=== PATIENT | male | born 1950 | race Caucasian/White ===

== ENCOUNTER → 2016-12-19 | Outpatient (CLI) | payer OTHER | END | disposition home or self-care (01) | LOC: C.PATHSPEC 13:40 | PROVIDERS: ATTEND Dentist Endodontics | DX: K13.79 Other lesions of oral mucosa (principal) ==

== ENCOUNTER 2018-11-24 21:30 | Inpatient (IN) ==
--- NOTE | 2018-11-24 21:49 | Emergency Department Note ---
History of Present Illness General Chief complaint: Chest Pain Stated complaint: CHEST DISCOMFORT, SOB History of Present Illness Maximum Pain Intensity: 2 This 67-year-old presents to the ER complaining of chest pain Location: Mid chest Quality: Pressure Severity: Moderate Duration: Since 1 PM Timing: Started this afternoon Context: Symptoms got worse and patient came in Modifying factors: better with nothing; worse with nothing Patient also complains of some shortness of breath and back discomfort. No prior heart disease. He does have high blood pressure and cholesterol. Patient denies exertional chest pain, abdominal pain, leg pain or swelling, recent travel. He does not smoke. Last cardiac cath was in 2010. Negative per patient. Patient does not check his blood sugars. Home Medications Home Medications Medication Instructions Recorded Confirmed Type atenolol-chlorthalidone 1 tab PO QAM 03/25/18 11/24/18 History losartan 100 mg PO QAM 03/25/18 11/24/18 History metformin 1,000 mg PO QAM 03/25/18 11/24/18 History metformin 500 mg PO HS 03/25/18 11/24/18 History zolpidem [Ambien] 12.5 mg PO HS 03/25/18 11/24/18 History aspirin 81 mg PO QAM 11/24/18 11/24/18 History lactobacillus combination no.4 0 mmu cells PO QAM 11/24/18 11/24/18 History [Probiotic] naproxen sodium [Aleve] 220 mg PO BID PRN 11/24/18 11/24/18 History Allergies Allergy/AdvReac Type Severity Reaction Status Date / Time morphine Allergy Unknown Unknown Verified 11/24/18 22:10 rosuvastatin [From Crestor] AdvReac Intermediate Muscle Verified 11/24/18 22:10 pain and upset stomach Past Med/Surg History Medical History Insomnia Type 2 diabetes mellitus Mood disorder HTN (hypertension) COPD (chronic obstructive pulmonary disease) Family History Other No significant family history Social History Preferred Language: Singaporean Feels Safe at Home: Yes Smoking Status: Never smoker Review of Systems All systems reviewed & are unremarkable except as noted in HPI & below Physical Exam Vital Signs Vital Signs - 24 hr 11/24/18 21:34 11/24/18 21:37 11/24/18 21:40 Temperature 37.2 C Temperature Source Oral Sepsis Recent Fever Within 48 Hours No Sepsis New/Unexplained Change in Mental Status No Sepsis Action Taken by Nursing No Action Required Pulse Rate 60 63 65 Pulse Rate from SpO2 Sensor 61 63 65 Respiratory Rate 17 13 13 Respiratory Effort / Characteristics Non-Labored Spontaneous Respiratory Depth Normal Respiratory Pattern Regular Blood Pressure 191/102 H 182/88 H 182/88 H Blood Pressure Mean 131 119 119 Pulse Oximetry 99 98 99 Oxygen Delivery Method Room Air 11/24/18 21:50 11/24/18 22:00 11/24/18 22:10 Temperature Temperature Source Sepsis Recent Fever Within 48 Hours Sepsis New/Unexplained Change in Mental Status Sepsis Action Taken by Nursing Pulse Rate 57 L 60 55 L Pulse Rate from SpO2 Sensor 57 L 59 L 55 L Respiratory Rate 19 20 12 Respiratory Effort / Characteristics Respiratory Depth Respiratory Pattern Blood Pressure Blood Pressure Mean Pulse Oximetry 97 97 97 Oxygen Delivery Method 11/24/18 22:20 11/24/18 22:30 11/24/18 22:40 Temperature Temperature Source Sepsis Recent Fever Within 48 Hours Sepsis New/Unexplained Change in Mental Status Sepsis Action Taken by Nursing Pulse Rate 56 L 56 L 56 L Pulse Rate from SpO2 Sensor 55 L 54 L 56 L Respiratory Rate 22 14 13 Respiratory Effort / Characteristics Respiratory Depth Respiratory Pattern Blood Pressure Blood Pressure Mean Pulse Oximetry 94 96 95 Oxygen Delivery Method VITALS: Vitals are noted on the nurse's note and reviewed by myself. Vital signs hypertensive. GENERAL: Pleasant male, in no acute distress, nondiaphoretic, well-developed w ell-nourished. SKIN: The skin was without rashes, erythema, edema, or bruising. There is no tenting of the skin. Capillary reflex less than 2 seconds. HEAD: Normocephalic atraumatic. EARS: External auditory canals clear, fluid in both ear canals. EYES: Pupils equal round and reactive to light and accommodation. Conjunctivae without injection, sclerae without icterus. Extraocular movements intact. NOSE: Patent, turbinates without inflammation or discharge. MOUTH: Mucous membranes moist. Pharynx without erythema or exudate. Uvula midline. Airway patent. Tongue does not deviate. NECK: Supple without nuchal rigidity. No lymphadenopathy. No thyromegaly. Cervical spine is nontender. No JVD. HEART: Regular rate and rhythm LUNGS: Clear to auscultation bilaterally without wheezes, rales or rhonchi. No retractions or accessory muscle use. ABDOMEN: Positive bowel sounds x 4. Normal tympanic percussion. Soft, nontender, without masses or organomegaly. Meléndez sign negative. No guarding or rebound tenderness. No CVA tenderness MUSCULOSKELETAL: No muscle atrophy, erythema, or edema noted. NEURO: Patient was alert and oriented to person place and time. Normal sensati on to light and sharp touch. No focal neurological deficits. Course Administered Medications Magnesium Sulfate/Dextrose (Magnesium Sulfate / D5w) 1 gm in 100 mls @ 100 mls/hr IV ONE ONE Stop: 11/24/18 23:30 Last Admin: 11/24/18 22:57 Dose: 100 mls/hr Documented by: [id number] Discontinued Medications Lorazepam (Ativan) 1 mg in 2 mls @ 2 mls/min IV NOW STA Stop: 11/24/18 22:33 Last Admin: 11/24/18 22:57 Dose: 2 mls/min Documented by: [id number] Losartan Potassium (Cozaar) 50 mg PO NOW STA Stop: 11/24/18 22:33 Last Admin: 11/24/18 22:56 Dose: 50 mg Documented by: [id number] Potassium Chloride (Klor-Con M10) 20 meq PO NOW STA Stop: 11/24/18 22:32 Last Admin: 11/24/18 22:56 Dose: 20 meq Documented by: [id number] Potassium Chloride (Klor-Con M20) 40 meq PO NOW STA Stop: 11/24/18 22:33 Last Admin: 11/24/18 22:56 Dose: 40 meq Documented by: [id number] Medical Decision Making Medical Records Attestation: I reviewed the patient's medical records. Home Medications Current Medication List: was personally reviewed by me Laboratory Data Attestation: I reviewed the patient's lab results. Result diagrams: 11/24/18 21:25 11/24/18 21:25 Lab Results 11/24/18 11/24/18 11/24/18 Range/Units 21:25 21:25 21:25 WBC 10.78 (4.8-10.8) K/uL RBC 5.06 (4.7-6.1) M/uL Hgb 15.1 (14.0-18.0) g/dL Hct 43.1 (42-52) % MCV 85.2 (80-100) fL MCH 29.8 (25-34) pg MCHC 35.0 (32-36) g/dL RDW Std Deviation 41.9 (36.4-46.3) fL RDW Coeff of Avinash 13.5 (11.5-14.5) % Plt Count 184 (130-400) K/uL MPV 10.3 (7.4-10.4) fL Immature Gran % (Auto) 0.4 % Neut % (Auto) 60.7 % Lymph % (Auto) 30.1 % [place] % (Auto) 7.6 % Eos % (Auto) 0.8 % Baso % (Auto) 0.4 % Immature Gran # (Auto) 0.04 H (0.00-0.02) K/uL Neut # (Auto) 6.55 H (1.4-6.5) K/uL Lymph # (Auto) 3.24 (1.2-3.4) K/uL [place] # (Auto) 0.82 H (0.11-0.59) K/uL Eos # (Auto) 0.09 (0-0.5) K/uL Baso # (Auto) 0.04 (0-0.2) K/uL APTT 27.9 (21.0-31.0) Seconds PTT Ratio 1.0 POC D-Dimer (0-450) ng/mlFEU Sodium 138 (136-145) mmol/L Potassium 3.2 L (3.5-5.1) mmol/L Chloride 101 (98-107) mmol/L Carbon Dioxide 29 (21-32) mmol/L Anion Gap 8.0 (3-11) BUN 15 (7-18) mg/dl Creatinine 0.92 (0.6-1.4) mg/dl Est Cr Clr Drug Dosing 68.4 ml/min Est GFR ( Amer) 98.0 Est GFR (Non-Af Amer) 84.6 BUN/Creatinine Ratio 15.9 (10-20) Glucose 81 (70-99) mg/dl Calcium 10.3 H (8.5-10.1) mg/dl Magnesium 1.6 L (1.8-2.4) mg/dl Total Bilirubin 0.9 (0.2-1) mg/dl AST 21 (15-37) U/L ALT 25 (12-78) U/L Alkaline Phosphatase 99 (45-117) U/L Total Creatine Kinase 155 (39-308) U/L POC Troponin I (0-0.045) ng/ml Troponin I < 0.015 (0-0.045) ng/ml Total Protein 7.1 (6.4-8.2) gm/dl Albumin 3.8 (3.4-5.0) gm/dl Globulin 3.3 (2.5-4.0) gm/dl Albumin/Globulin Ratio 1.1 (0.9-2) Lipase 153 (73-393) U/L 11/24/18 Range/Units 21:54 WBC (4.8-10.8) K/uL RBC (4.7-6.1) M/uL Hgb (14.0-18.0) g/dL Hct (42-52) % MCV (80-100) fL MCH (25-34) pg MCHC (32-36) g/dL RDW Std Deviation (36.4-46.3) fL RDW Coeff of Avinash (11.5-14.5) % Plt Count (130-400) K/uL MPV (7.4-10.4) fL Immature Gran % (Auto) % Neut % (Auto) % Lymph % (Auto) % [place] % (Auto) % Eos % (Auto) % Baso % (Auto) % Immature Gran # (Auto) (0.00-0.02) K/uL Neut # (Auto) (1.4-6.5) K/uL Lymph # (Auto) (1.2-3.4) K/uL [place] # (Auto) (0.11-0.59) K/uL Eos # (Auto) (0-0.5) K/uL Baso # (Auto) (0-0.2) K/uL APTT (21.0-31.0) Seconds PTT Ratio POC D-Dimer 178 (0-450) ng/mlFEU Sodium (136-145) mmol/L Potassium (3.5-5.1) mmol/L Chloride (98-107) mmol/L Carbon Dioxide (21-32) mmol/L Anion Gap (3-11) BUN (7-18) mg/dl Creatinine (0.6-1.4) mg/dl Est Cr Clr Drug Dosing ml/min Est GFR ( Amer) Est GFR (Non-Af Amer) BUN/Creatinine Ratio (10-20) Glucose (70-99) mg/dl Calcium (8.5-10.1) mg/dl Magnesium (1.8-2.4) mg/dl Total Bilirubin (0.2-1) mg/dl AST (15-37) U/L ALT (12-78) U/L Alkaline Phosphatase (45-117) U/L Total Creatine Kinase (39-308) U/L POC Troponin I < 0.03 (0-0.045) ng/ml Troponin I (0-0.045) ng/ml Total Protein (6.4-8.2) gm/dl Albumin (3.4-5.0) gm/dl Globulin (2.5-4.0) gm/dl Albumin/Globulin Ratio (0.9-2) Lipase (73-393) U/L Imaging Data Attestation: I personally reviewed and interpreted this imaging study as follows: Blood Pressure Blood Pressure Findings: Elevated blood pressure Blood Pressure Disposition: Referred to patients primary care provider MDM Narrative Prior records/ancillary studies reviewed. Triage Nursing notes reviewed. Additional history obtained from family and EMS. The patient's history was concerning for chest pain. Differential diagnosis: Etiologies such as cardiac ischemia, aortic dissection, pulmonary embolism, pneumonia, pneumothorax, musculoskeletal, infections, pericarditis, myocarditis, esophageal rupture, gastrointestinal, as well as others were entertained. Physical examination: As above. ER treatment provided: EMS gave aspirin. On reassessment the patient felt better. Diagnostic interpretation by me: The electrocardiogram was negative for pathologic change. Normal sinus, normal intervals, no acute ST-T wave changes, rate of 60. Impression normal sinus rhythm interpreted by myself. Repeat EKG is unchanged. I think arrhythmia is unlikely. EKG shows normal sinus rhythm with no interval abnormalities such as QT prolongation or WPW. There are no findings to suggest Brugada syndrome. Cardiac monitoring in the emergency department reveals no tachycardic or bradycardic dysrhythmia. Hypertrophic cardiomyopathy was considered but there are no clear historical elements pointing toward this. EKG is not suggestive. The QRS voltage is not extremely large and there are no suggestive Q waves. The labs revealed negative troponin. Negative d-dimer. Hypomagnesia and hypokalemia this is replaced Imaging studies: Chest x-ray with no acute consolidation pneumothorax or free air per my interpretation. HEART SCORE: Hx: high/mod/low suspicion: 1 ECG: ST depression/nonspecific changes/normal: 0 Age: Greater than 65/45-64/less than 45: 2 Risk factors: (Hypertension, hyperlipidemia, diabetes, coronary disease, tobacco use, cocaine use): 2 Troponin: Greater than 2 times normal limits/1-2 times normal limits/normal: 0 Total: 5 Consultation: A consultation was placed with the hospitalist, Dr Adams. The case was discussed and diagnostics were reviewed. The patient was evaluated in the ER for further treatment. Exam and history seem consistent with chest pain with risk factors for heart di sease. First troponin was negative. D-dimer was negative. Repeat EKG is unchanged. Patient is agreeable to treatment plan of admission. No recent cardiac testing. He does have high blood pressure and cholesterol for risk factors. By the evaluation outlined above emergent etiologies such as aortic dissection, pulmonary embolism, pneumonia, pneumothorax, infections, pericarditis, myocarditis, gastrointestinal, as well as others were deemed relatively unlikely. The pt informed about the findings as listed above. All questions were answered and pleased with the treatment. Case reviewed with my attending The chart was completed utilizing [employer] Speech voice recognition software. Grammatical errors, random word insertions, pronoun errors, and incomplete sentences are an occassional consequence of this system due to software limitations, ambient noise, and hardware issues. Any formal questions or concerns about the content, text, or information contained within the body of this dictation should be directly addressed to the physician physician assistant primary care for clarification. Impression & Plan Atypical chest pain, Hypomagnesemia, Hypokalemia Discharge Plan Visit Data Chief Complaint: Chest Pain Stated Complaint: CHEST DISCOMFORT, SOB ED Provider: Jey Álvarez ED Midlevel Provider: Chacha Anders Discharge Problem: Atypical chest pain, Hypomagnesemia, Hypokalemia Patient Disposition: Being Evaluated by Hospitalist Condition: Fair Forms Stand Alone Forms: Call Back Authorization, My [facility] AppSheet Prescriptions Prescriptions: No Action naproxen sodium [Aleve] 220 mg Tablet 220 mg PO BID PRN (Reason: Pain) RF: 0 aspirin 81 mg Tablet,Chewable 81 mg PO QAM RF: 0 Probiotic 3 billion cell Capsule PO QAM RF: 0 losartan 50 mg Tablet 100 mg PO QAM RF: 0 metformin 500 mg Tablet 1,000 mg PO QAM RF: 0 metformin 500 mg Tablet 500 mg PO HS RF: 0 atenolol-chlorthalidone 50-25 mg Tablet 1 tab PO QAM RF: 0 zolpidem [Ambien] 5 mg Tablet 12.5 mg PO HS RF: 0 Referrals Referrals: Andrew Griffith MD [Primary Care Provider] -
[2018-11-24 21:54] LABS: Basophils # (auto) 0.04 K/uL (0-0.2); Basophils % (auto) 0.4 %; Eosinophils # (auto) 0.09 K/uL (0-0.5); Eosinophils % (auto) 0.8 %; Hematocrit (blood only) 43.1 % (42-52); Hemoglobin 15.1 g/dL (14.0-18.0); Immature Granulocytes # (auto) 0.04 K/uL (0.00-0.02); Immature Granulocytes % (auto) 0.4 %; Lymphocytes # (auto) 3.24 K/uL (1.2-3.4); Lymphocytes % (auto) 30.1 %; Mean Corpuscular Volume 85.2 fL (80-100); Mean Platelet Volume 10.3 fL (7.4-10.4); Monocytes # (auto) 0.82 K/uL (0.11-0.59); Monocytes % (auto) 7.6 %; Neutrophils # (auto) 6.55 K/uL (1.4-6.5); Neutrophils % (auto) 60.7 %; Platelet Count 184 K/uL (130-400); RDW Coefficient of Variation 13.5 % (11.5-14.5); RDW Standard Deviation 41.9 fL (36.4-46.3); Red Blood Count 5.06 M/uL (4.7-6.1); White Blood Count 10.78 K/uL (4.8-10.8)
[2018-11-24 22:00] LABS: Alanine Aminotransferase 25 U/L (12-78); Albumin Level 3.8 gm/dl (3.4-5.0); Aspartate Aminotransferase 21 U/L (15-37); BUN Creatinine Ratio 15.9 (10-20); Blood Urea Nitrogen 15 mg/dl (7-18); Calcium 10.3 mg/dl (8.5-10.1); Carbon Dioxide 29 mmol/L (21-32); Chloride 101 mmol/L (98-107); Creatinine Clr Calc Pharmacy 68.4 ml/min; Est GFR (Non-African American) 84.6; Glucose 81 mg/dl (70-99); Magnesium 1.6 mg/dl (1.8-2.4); Potassium 3.2 mmol/L (3.5-5.1); Sodium 138 mmol/L (136-145)
--- NOTE | 2018-11-24 22:00 | XRay Report ---
XR chest 1V portable CLINICAL HISTORY: Chest Pain COMPARISON STUDY: Chest radiograph March 25, 2018. FINDINGS: Lung volumes are normal. Lungs are clear. There is no pneumothorax or pleural effusion. Car diac size is normal. Mediastinal contours are normal. There is no evidence for pulmonary edema. IMPRESSION: No acute cardiopulmonary findings. Electronically signed by: Shamar Campbell M.D. 11/24/2018 9:59 PM
[2018-11-24 22:05] LABS: Albumin Globulin Ratio 1.1 (0.9-2); Alkaline Phosphatase 99 U/L (45-117); Bilirubin,Total 0.9 mg/dl (0.2-1); Creatine Kinase 155 U/L (39-308); Globulin 3.3 gm/dl (2.5-4.0); Total Protein 7.1 gm/dl (6.4-8.2); Troponin I < 0.015 ng/ml (0-0.045)
[2018-11-24] MEDS ORDERED: POTASSIUM CHLORIDE 10 MEQ TABCR PO STA (22:31)
[2018-11-24] MEDS ORDERED: MAGNESIUM SULFATE / D5W 1 GM/100 ML BAG IV ONE (22:31)
[2018-11-24] MEDS ORDERED: LORazepam 1 MG/2 ML VIAL IV STA (22:32)
[2018-11-24] MEDS ORDERED: LOSARTAN POTASSIUM 50 MG TAB PO STA (22:32)
[2018-11-24] MEDS ORDERED: POTASSIUM CHLORIDE 20 MEQ TABCR PO STA (22:32)
[2018-11-24 23:00] LABS: Partial Thromboplastin Time 27.9 Seconds (21.0-31.0)
[2018-11-24] MEDS ORDERED: DiphenhydrAMINE HCL 50 MG/ML VIAL IV STA (23:19)
[2018-11-24] MEDS ORDERED: methylPREDNISolone 125 MG/2 ML VIAL IV STA (23:19)
[2018-11-24] MEDS ORDERED: TRAMADOL HCL 50 MG TABLET PO PRN (23:45)
[2018-11-24] MEDS ORDERED: NITROGLYCERIN SL 0.4 MG/TAB TAB SL STA (23:45)
--- NOTE | 2018-11-25 00:15 | History & Physical Report ---
Date of Service November 25, 2018 Assessment & Plan (1) Chest pain: Likely secondary to hypertensive urgency Possibly related to OTC NSAID intake for chronic back pain DM 2 on oral medications, well-controlled as of recent outpatient hemoglobin A1c of 6 last August 2018 COPD, past tobacco abuse, no acute lung issue Hypokalemia history solitary kidney as per records OBS PCU Add Norvasc to beta-ga and ARB TTE RE chest pain Patient counseled about adverse effects of NSAIDs on blood pressure control. Replace potassium ISS BG goal 1 40-1 80, may need basal insulin DVT prophylaxis. Lovenox subcu Full code History of Present Illness Chief Complaint: Chest pain Primary Care Provider: Andrew Griffith MD History obtained from patient, family, and records. Medical history significant for hypertension, DM 2 on oral medications, COPD, past tobacco abuse, chronic back pain, history solitary kidney, osteoarthritis. Last night patient noted substernal/subcostal chest pain going to both shoulder blades and the left arm. SBP noted to be higher at home the last week at 150s. Compliant with home BP meds. Denies dietary indiscretion. Patient denies unusual stress. Admits to OTC NSAID intake for back pain. No fever, no chills no cough symptoms. Some improvement of chest pain upon arrival at the ER. 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 Allergies Allergy/AdvReac Type Severity Reaction Status Date / Time Iodinated Contrast- Oral and Allergy Mild Hives Verified 11/25/18 00:14 IV Dye morphine Allergy Unknown Unknown Verified 11/24/18 22:10 rosuvastatin [From Crestor] AdvReac Intermediate Muscle Verified 11/24/18 22:10 pain and upset stomach Home Medications Home Medications Medication Instructions Recorded Confirmed Type atenolol-chlorthalidone 1 tab PO QAM 03/25/18 11/24/18 History losartan 100 mg PO QAM 03/25/18 11/24/18 History metformin 1,000 mg PO QAM 03/25/18 11/24/18 History metformin 500 mg PO HS 03/25/18 11/24/18 History zolpidem [Ambien] 12.5 mg PO HS 03/25/18 11/24/18 History aspirin 81 mg PO QAM 11/24/18 11/24/18 History lactobacillus combination no.4 0 mmu cells PO QAM 11/24/18 11/24/18 History [Probiotic] naproxen sodium [Aleve] 220 mg PO BID PRN 11/24/18 11/24/18 History Past Med/Surg History Medical History Insomnia Type 2 diabetes mellitus Mood disorder HTN (hypertension) COPD (chronic obstructive pulmonary disease) Family History Other No significant family history Social History Preferred Language: Sinhala Communication Ability: Effective Beliefs That Will Affect Care: None Current Living Situation: Spouse Other Information That Helps Us Care for You: No Feels Safe at Home: Yes Safety Concerns: Feels Safe At This Time Smoking Status: Former smoker Hx Alcohol Use: No Hx Substance Use: No Review of Systems Review of Systems: As per HPI, all 10 systems reviewed, all other ROS negative Physical Exam Physical Exam: GENERAL: Slightly anxious , no respiratory distress SKIN: Normal color, warm HEENT: [place] palpebral conjunctivae, no ptosis, old lip asymmetry (chronic as per patient ), partially edentulous, dry buccal mucosa NECK : Supple, no tenderness CHEST : CTA, no tenderness HEART : Bradycardic, no obvious murmurs ABDOMEN: Some distention, nontender EXTREMITIES : No LE swelling/tenderness, no other conspicuous deformities noted NEUROLOGIC : Coherent, chronic upper lip asymmetry, no other gross focality Results & Data Vital Signs (Past 12 Hours) Vital Signs Temp Pulse Resp BP Pulse Ox 11/24/18 22:40 56 L 13 95 11/24/18 22:30 56 L 14 96 11/24/18 22:20 56 L 22 94 11/24/18 22:10 55 L 12 97 11/24/18 22:00 60 20 97 11/24/18 21:50 57 L 19 97 11/24/18 21:40 37.2 C 65 13 182/88 H 99 11/24/18 21:37 63 13 182/88 H 98 11/24/18 21:34 60 17 191/102 H 99 Laboratory Results Laboratory Results WBC 10.78 K/uL (4.8-10.8) 11/24/18 21: RBC 5.06 M/uL (4.7-6.1) 11/24/18 21: Hgb 15.1 g/dL (14.0-18.0) 11/24/18 21:25 Hct 43.1 % (42-52) 11/24/18 21:25 MCV 85.2 fL (80-100) 11/24/18 21: MCH 29.8 pg (25-34) 11/24/18 21: MCHC 35.0 g/dL (32-36) 11/24/18: RDW Std Deviation 41.9 fL (36.4-46.3) 11/24/18: RDW Coeff of Avinash 13.5 % (11.5-14.5) 11/24/18: Plt Count 184 K/uL (130-400) 11/24/18 21: MPV 10.3 fL (7.4-10.4) 11/24/18 21:25 Immature Gran % (Auto) 0.4 % 11/24/18 21:25 Neut % (Auto) 60.7 % 11/24/18 21:25 Lymph % (Auto) 30.1 % 11/24/18 21:25 [place] % (Auto) 7.6 % 11/24/18 21:25 Eos % (Auto) 0.8 % 11/24/18 21:25 Baso % (Auto) 0.4 % 11/24/18 21:25 Immature Gran # (Auto) 0.04 K/uL (0.00-0.02) H 11/24/18 21:25 Neut # (Auto) 6.55 K/uL (1.4-6.5) H 11/24/18 21:25 Lymph # (Auto) 3.24 K/uL (1.2-3.4) 11/24/18 21:25 [place] # (Auto) 0.82 K/uL (0.11-0.59) H 11/24/18 21:25 Eos # (Auto) 0.09 K/uL (0-0.5) 11/24/18 21: Baso # (Auto) 0.04 K/uL (0-0.2) 11/24/18 21:25 APTT 27.9 Seconds (21.0-31.0) 11/24/18 21:25 PTT Ratio 1.0 11/24/18 21:25 POC D-Dimer 178 ng/mlFEU (0-450) 11/24/18 21:54 Sodium 138 mmol/L (136-145) 11/24/18 21:25 Potassium 3.2 mmol/L (3.5-5.1) L 11/24/18 21:25 Chloride 101 mmol/L (98-107) 11/24/18 21:25 Carbon Dioxide 29 mmol/L (21-32) 11/24/18 21:25 Anion Gap 8.0 (3-11) 11/24/18 21:25 BUN 15 mg/dl (7-18) 11/24/18 21:25 Creatinine 0.92 mg/dl (0.6-1.4) 11/24/18 21:25 Est Cr Clr Drug Dosing 68.4 ml/min 11/24/18 21:25 Est GFR ( Amer) 98.0 11/24/18 21:25 Est GFR (Non-Af Amer) 84.6 11/24/18 21:25 BUN/Creatinine Ratio 15.9 (10-20) 11/24/18 21:25 Glucose 81 mg/dl (70-99) 11/24/18 21:25 Calcium 10.3 mg/dl (8.5-10.1) H 11/24/18 21:25 Magnesium 1.6 mg/dl (1.8-2.4) L 11/24/18 21:25 Total Bilirubin 0.9 mg/dl (0.2-1) 11/24/18 21:25 AST 21 U/L (15-37) 11/24/18 21:25 ALT 25 U/L (12-78) 11/24/18 21:25 Alkaline Phosphatase 99 U/L (45-117) 11/24/18 21:25 Total Creatine Kinase 155 U/L (39-308) 11/24/18 21:25 POC Troponin I < 0.03 ng/ml (0-0.045) 11/24/18 21:54 Troponin I < 0.015 ng/ml (0-0.045) 11/24/18 21:25 Total Protein 7.1 gm/dl (6.4-8.2) 11/24/18 21:25 Albumin 3.8 gm/dl (3.4-5.0) 11/24/18 21:25 Globulin 3.3 gm/dl (2.5-4.0) 11/24/18 21:25 Albumin/Globulin Ratio 1.1 (0.9-2) 11/24/18 21:25 Lipase 153 U/L (73-393) 11/24/18 21:25 TSH 2.300 uIu/ml (0.300-4.500) 11/24/18 21:[address] head initial read: No acute intracranial process. Involutional changes. CTA initial read: No aortic aneurysm or dissection. No pulmonary emboli. No effusion/consolidation. Hiatal hernia. Cholecystectomy. EKG as per my interpretation: Rate 60, NSR, LAD, T wave flattening inferior leads
[2018-11-25] MEDS ORDERED: OPTIRAY 320 125ml IV PRN (00:20)
[2018-11-25] MEDS ORDERED: LANTUS PER UNIT CHARGE SQ ONE (00:30)
[2018-11-25] MEDS ORDERED: HYDROmorphone INJ 0.5 MG/0.5 ML SYR IV PRN (00:47)
[2018-11-25] MEDS ORDERED: GLUCOSE 40% GEL 15 GM TUBE PO PRN (00:47)
[2018-11-25] MEDS ORDERED: NITROGLYCERIN SL 0.4 MG/TAB TAB SL PRN (00:47)
[2018-11-25] MEDS ORDERED: LORazepam 0.25 MG/0.5 ML VIAL IV PRN (00:47)
[2018-11-25] MEDS ORDERED: CARBOHYDRATES FOR HYPOGLYCEMIA PO PRN (00:47)
[2018-11-25] MEDS ORDERED: PROMETHAZINE HCL 12.5 MG in SODIUM CHLORIDE 0.9% 50 ML IV PRN (00:47)
[2018-11-25] MEDS ORDERED: DEXTROSE 50% 50 ML SYRINGE IV PRN (00:47)
[2018-11-25] MEDS ORDERED: GLUCAGON FOR INJ 1 MG VIAL SQ PRN (00:47)
[2018-11-25] MEDS ORDERED: ACETAMINOPHEN 325 MG TAB PO PRN (00:47)
[2018-11-25] MEDS ORDERED: GLUCOSE 10 TABS/TUBE PO PRN (00:47)
[2018-11-25] MEDS ORDERED: AMLODIPINE BESYLATE 5 MG TAB PO ONE ×2 (00:55→15:39)
[2018-11-25] MEDS: INSULIN ASPART 100 UNITS/ML 3 ML PEN SC SCH ×5 (00:57→20:16)
[2018-11-25] MEDS ORDERED: NSS + 20MEQ KCL 20 MEQ/1,000 ML BAG IV SCH (01:00)
[2018-11-25] MEDS ORDERED: MAGNESIUM SULFATE / D5W 1 GM/100 ML BAG IV ONE (03:00)
[2018-11-25 04:34] LABS: Hemoglobin 15.1 g/dL (14.0-18.0); Mean Corpuscular Hgb Conc 35.1 g/dL (32-36); Mean Corpuscular Volume 85.1 fL (80-100); Mean Platelet Volume 10.1 fL (7.4-10.4); Platelet Count 168 K/uL (130-400); RDW Coefficient of Variation 13.6 % (11.5-14.5); RDW Standard Deviation 41.8 fL (36.4-46.3); Red Blood Count 5.05 M/uL (4.7-6.1); White Blood Count 9.58 K/uL (4.8-10.8)
[2018-11-25 04:44] LABS: INR 1.1 (0.9-1.1); Partial Thromboplastin Time 27.3 Seconds (21.0-31.0); Prothrombin Time 10.9 Seconds (9.0-12.0)
[2018-11-25 05:04] LABS: BUN Creatinine Ratio 14.9 (10-20); Blood Urea Nitrogen 13 mg/dl (7-18); Calcium 9.7 mg/dl (8.5-10.1); Carbon Dioxide 29 mmol/L (21-32); Chloride 102 mmol/L (98-107); Chol HDL Ratio 3; Cholesterol 159 mg/dl (0-200); Creatinine Clr Calc Pharmacy 70.7 ml/min; Est GFR (African American) 101.1; Est GFR (Non-African American) 87.2; Glucose 135 mg/dl (70-99); HDL Cholesterol 59 mg/dl; LDL Cholesterol Calculated 82 mg/dl; Magnesium 2.3 mg/dl (1.8-2.4); Potassium 3.8 mmol/L (3.5-5.1); Sodium 137 mmol/L (136-145); Triglycerides 92 mg/dl (0-150); Troponin I < 0.015 ng/ml (0-0.045); VLDL Cholesterol 18 mg/dl
[2018-11-25 05:07] LABS: Basophils # (auto) 0.02 K/uL (0-0.2); Basophils % (auto) 0.2 %; Eosinophils # (auto) 0.02 K/uL (0-0.5); Eosinophils % (auto) 0.2 %; Immature Granulocytes # (auto) 0.04 K/uL (0.00-0.02); Immature Granulocytes % (auto) 0.4 %; Lymphocytes # (auto) 1.32 K/uL (1.2-3.4); Lymphocytes % (auto) 13.8 %; Neutrophils # (auto) 8.08 K/uL (1.4-6.5); Neutrophils % (auto) 84.4 %
--- NOTE | 2018-11-25 06:55 | CT Scan Report ---
CT head/brain wo con CLINICAL HISTORY: 67 years-old Male presenting with headache. TECHNIQUE: Multidetector CT imaging of the head was performed without the use of intravenous contrast . IV contrast: None. One or more dose lowering techniques were used consistent with the principles of ALARA (as low as reasonably achievable), including automatic exposure control, mA or kV adjustment t o individual patient size, and/or use of iterative reconstruction. COMPARISON: 03/25/2018. CT DOSE (mGy.cm): The estimated cumulative dose is 537.48 mGy.cm. 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 Ventricles and sulci normal in size. No hemorrhage. Brain parenchyma normal in appearance with preser miracle ayala-white differentiation. No acute territorial infarct. No mass effect or midline shift. No ext ra-axial fluid collection. Paranasal sinuses and mastoid air cells clear. Calvarium intact. Absent na tive lenses. IMPRESSION: 1. No acute intracranial abnormality. Electronically signed by: Chris Murphy M.D. 11/25/2018 6:54 AM
--- NOTE | 2018-11-25 07:42 | CT Scan Report ---
CT angio chest dissec wo/w con CLINICAL HISTORY: 67 years-old Male presenting with chest pain, shoulder blade pain, clinical concern for aortic dissection. TECHNIQUE: Multidetector CT angiography of the chest was performed before and after the administratio n of intravenous contrast. 3-D volumetric and/or maximum intensity projection (MIP) images were subse quently reconstructed for review. IV contrast: 115 mL of Optiray 320. One or more dose lowering techn iques were used consistent with the principles of ALARA (as low as reasonably achievable), including automatic exposure control, mA or kV adjustment to individual patient size, and/or use of iterative r econstruction. COMPARISON: Chest x-ray performed earlier the same day. CT DOSE (mGy.cm): The estimated cumulative dose is 832.30 mGy.cm. 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 Vasculature: The study is adequate for assessment of the aorta. Precontrast imaging demonstrates no evidence of in tramural hematoma. Postcontrast imaging demonstrates no evidence of dissection, penetrating ulcer, or aneurysm. Allowing for timing of the contrast bolus, no gross evidence of a filling defect within th e pulmonary arteries to suggest embolus. Main pulmonary artery is not enlarged. No flattening of the interventricular septum. No intracardiac filling defect. No reflux of contrast into the hepatic veins . Remaining chest: Soft tissues: Normal thyroid and thoracic inlet. No axillary, supraclavicular, mediastinal, or hilar lymphadenopathy. Normal heart size. No pericardial or pleural effusion. Cholecystectomy clips. Trace hiatal hernia. Nodular thickening of the left adrenal gland likely indicates underlying small benign adenoma. Lungs and airways: No pneumothorax. Central airways patent. Pulmonary arteries are not significantly enlarged relative to adjacent bronchi. No interlobular septal thickening. Trace apical predominant ce ntrilobular emphysema may be present. Scattered nonspecific punctate nodules within upper lobe predom inance noted bilaterally. Musculoskeletal: Degenerative changes of the spine. IMPRESSION: 1. No evidence of acute aortic injury. No acute intrathoracic pathology. Electronically signed by: Chris Murphy M.D. 11/25/2018 7:41 AM
[2018-11-25] MEDS: LOSARTAN POTASSIUM 50 MG TAB PO SCH (08:15)
[2018-11-25] MEDS: ASPIRIN 81 MG ECTAB PO SCH (08:15)
[2018-11-25] MEDS ORDERED: ENOXAPARIN INJ 40 MG/0.4 ML SYR SQ SCH (09:00)
--- NOTE | 2018-11-25 13:15 | Hospitalist Progress Note ---
Date of Service November 25, 2018 Assessment & Plan (1) Unstable angina: Presented with anginal symptom, chest heaviness" something sitting on chest"-difficulty breathing, discomfort radiating to back numbness radiating to left arm and fingers Associated with hypertensive urgency, systolic BP was more than 180 on presentation Symptom improved after blood pressure control Serial troponins been negative At present patient is chest pain-free Has a very significant family history: Father had FL at age approximately 50- year/underwent quadruple bypass, due to FL at age 62 Paternal grandfather: History of FL Patient is a non-smoker, Had stress test leading to cardiac cath done in 2010 in [facility] secondary to similar presentation Cardiac cath revealed 5% RCA stenosis/15% LAD lesion, ejection fraction 60% Medical management was recommended Echo: This admission No wall motion abnormality, EF 60% Grade 1 diastolic dysfunction CTA OF CHEST : no evidence of Aortic dissection /or PE No evidence of acute aortic injury. No acute intrathoracic pathology. Given patient's significant family history, anginal symptom at rest-need to have evaluation for cardiac ischemia: Stress test with or without cardiac angiogram depending the outcome of the cardiac stress test will need pharmacological cardiac stress test, unable to do treadmill test secondary to back pain, bilateral knee osteoarthritis [facility] consulted We will follow cardiology recommendation for further cardiac work-up Present on Admission?: Yes (2) Hypertensive urgency: Noted with elevated blood pressure, SBP in 180s Patient is home BP regimen includes losartan 100 mg daily Atenololchlorthalidone 50/25 mg by mouth daily prazosin 1 mg tablet at bedtime Atenolol/chlorthalidone combination and Prazosin kept on hold on admission by admitting physician Added Norvasc 2.5 mg: Leading to adequate control of blood pressure, resolution of chest heaviness Given patient's high risk for coronary artery disease, a beta-ga is recommended, will defer recommendation to cardiology (3) Hypokalemia: Resented with potassium 3.2 Corrected with IV supplement Repeat lab this morning shows potassium 3.8: Within normal limit IV fluid with potassium supplement discontinued (4) Type 2 diabetes mellitus: Hemoglobin A1c 6 as per lab noted in clinic on August 2018 Home antidiabetic regimen: Metformin-kept on hold, patient received contrast for CTA of chest Insulin sliding scale while in hospital (5) Family history of coronary artery disease in father: Family history of premature coronary artery disease, FL (at age 50s )leading to sudden cardiac in father at age 62 Patient remains in the high risk category for coronary artery disease Presents with unstable angina in the setting of hypertensive urgency Will need further cardiac work-up for cardiac ischemia, cardiology consulted Echo as outlined as above (6) Coronary artery disease: Cardiac cath in 2011: Minimal coronary artery disease 5% RCA stenosis, 50% LAD stenosis Will need repeat cardiac work-up given presentation with unstable angina (7) Lymphadenopathy, inguinal: Right inguinal tender node/lymphadenopathy, for last 2 to 3 months, associated with generalized body ache, joint pain History of tick bite/Lyme disease 1 year back Ordered for Lyme titer, peripheral smear for anaplasmosis Ultrasound of groin to assess for lymphadenopathy (8) Submandibular lymphadenopathy: Associated with sore throat, nonproductive cough Possible reactive lymphadenopathy secondary to upper airway infection Order for streptococcal throat swab Symptomatic management with Tessalon peals as needed for sore throat (9) Solitary kidney: Monitor kidney function after contrast dye load (10) Allergic to IV contrast: Patient will need prednisone versus Solu-Medrol prophylaxis prior to iodinated contrast dye IV Solu-Medrol prior to CTA of chest CODE STATUS: Full code DVT prophylaxis: Subcu heparin Disposition: Expected to be discharged home when medically stable Patient's family physician: Dr. Escoto at [facility] Patient would like to continue cardiology follow-up with Dr. Zana Bahena at [facility] Subjective Patient reports of resolution of chest heaviness, discomfort/numbness radiating to left finger No shortness of breath no cough Has sore throat for past few days, no fever chills Painful lump noted on right neck region below the jawline, started to experience this morning Complains of chronic back pain, with generalized joint pain, malaise Reports of feeling fatigue in past few weeks BP 148/79 at 12 PM Review of Systems Review of Systems: All systems reviewed & are unremarkable except as noted in HPI & below Physical Exam Constitutional: WD/WN, vitals as above well developed; no acute distress Eyes: PERRL, conjunctivae normal, anicteric sclerae Neck: trachea midline, no thyromegaly + submandibular swelling (Right submandibular lymphadenopathy positive tenderness) and + neck tender (Tender right submandibular lymphadenopathy) Swelling / positive tenderness on submandibular lymph node on the right side Respiratory: normal respiratory effort, lungs clear to auscultation Cardiovascular: RRR, no murmur, no edema Musculoskeletal: Knee: + joint line tenderness (Right inguinal region, chronic bilateral knee pain from arthritis) Right groin pain, enlarge right inguinal lymph node noted-patient reports of having it for past few months Skin: no rashes, warm and dry Neurologic: PERRL, EOMI, accommodation nl, no face palsy, no dysarthria Psychiatric: A+Ox3, euthymic affect Results & Data Vital Signs (Past 12 Hours) Vital Signs Temp Pulse Resp BP Pulse Ox 11/25/18 12:22 36.8 C 70 18 148/79 H 97 11/25/18 07:24 36.8 C 66 16 159/69 H 96 11/25/18 03:33 36.5 C 63 19 160/86 H 98
[2018-11-25] MEDS ORDERED: BENZONATATE 100 MG CAPSULE PO PRN (14:00)
[2018-11-25] MEDS: LACTATED RINGER'S 1,000 ML IV SCH (14:17)
--- NOTE | 2018-11-25 15:08 | Ultrasound Report ---
LEFT INGUINAL ULTRASOUND HISTORY: Assess for enlarged lymph node left inguinal area. TECHNIQUE: Sonography of the bilateral inguinal regions was performed. COMPARISON: None. FINDINGS: Several benign-appearing bilateral inguinal lymph nodes were noted. No enlarged nodes are n oted. The nodes were elongated and contained fatty macho. IMPRESSION: No inguinal lymphadenopathy. Electronically signed by: Shamar Campbell M.D. 11/25/2018 3:07 PM
--- NOTE | 2018-11-25 16:02 | Consultation Report ---
DATE OF CONSULTATION: 11/25/2018 INPATIENT CARDIOLOGY CONSULTATION CONSULTATION REQUESTED BY: Dr. Lake. REASON FOR CONSULTATION: Chest pain. HISTORY OF PRESENT ILLNESS: Mr. Lam is a very pleasant 67-year-old gentleman who presented to [facility] late in the evening of 11/24/2018 with complaints of chest pain. The patient states that yesterday he went fishing in the morning, then came home. At lunch, he was sitting on the couch when he suddenly developed chest discomfort. He states that he got this overwhelming sensation of pressure around his chest that radiated around through to his back. It also radiated to both shoulders and after sometime started radiating down his left arm. After about 3 hours at home when the pain started radiating down his left arm, he became concerned and came into the Emergency Department. Upon arrival, he was found to be significantly hypertensive. He was treated and admitted to telemetry. His pain resolved after receiving nitroglycerin and his blood pressure improved somewhat overnight and he was appropriately started on Norvasc and increase dose of his losartan. His blood pressures have been in the 150s systolic since admission. Currently, he states he is symptom free and has not had any recurrences since the Emergency Room. PAST SURGICAL HISTORY: Cyst removal. MEDICAL ILLNESSES: 1. Type 2 diabetes. 2. Solitary kidney. 3. Chronic back pain. 4. Diabetic neuropathy. 5. Hypertension. 6. Depression. FAMILY HISTORY: Noncontributory. SOCIAL HISTORY: Denies any tobacco use. Drinks occasional alcohol. Denies any recreational drug use. He is and lives at home with his of 45 years. REVIEW OF SYSTEMS: As per HPI, all other review of systems reviewed and negative at this time. ALLERGIES: No known drug allergies. MEDICATIONS AN OUTPATIENT: 1. Atenolol 25 mg daily. 2. Atenolol/chlorthalidone 50/25 mg daily. 3. Losartan 50 mg daily. 4. Prazosin 1 mg at bedtime. 5. Metformin b.i.d. 6. Zoloft daily. PHYSICAL EXAMINATION: VITALS: Temperature 36.8, pulse 83, respiratory rate 12, blood pressure 154/72. GENERAL: Awake, alert, oriented x3 in no acute distress. HEENT: Normocephalic, atraumatic. Pupils equal, round, reactive to light and accommodation. Extraocular muscles intact. Anicteric sclerae. Moist mucous membranes. NECK: No JVD, no bruit. CARDIOVASCULAR: Regular. Positive S4. Normal S1 and S2. No S3. No murmurs or rubs. PULMONARY: Clear to auscultation bilaterally. No rales, rhonchi, or wheezing. ABDOMEN: Bowel sounds x4, soft. No rebound, guarding, tenderness. No organomegaly. EXTREMITIES: No clubbing, cyanosis or edema. +2 pedal pulses bilaterally. SKIN: Warm and dry. TEST RESULTS: A 2D echocardiogram performed 11/25/2018 was read as normal LV chamber size with mild concentric LVH, normal LV systolic function, EF 60-65%, no segmental left ventricle wall motion abnormalities are noted, grade 1 diastolic dysfunction, mild tricuspid regurgitation. A 12-lead EKG performed in the Emergency Department independently reviewed at this time shows sinus bradycardia at 60 beats per minute, normal axis, normal intervals, low voltage study, poor R-wave progression across the precordium. LABORATORY STUDIES OF SIGNIFICANCE: Troponin negative x2. IMPRESSION: 1. Chest pain. 2. Uncontrolled hypertension with possible component of hypertensive urgency. 3. Diabetes. RECOMMENDATIONS: It was my pleasure to see Mr. Lam in consultation today. From a cardiac standpoint, given that the patient was counseled that I do believe an ischemic evaluation is warranted at this time and I believe we should proceed with dobutamine stress echocardiogram. I offered to perform the test this afternoon; however, the patient would prefer to wait until the a.m. when his is present. So at this point, his losartan was increased to 100 mg daily, which I agree with. He was started on amlodipine 2.5 mg daily, which I also agree with and I will increase that to 5 mg daily. I agree with not restarting his atenolol or chlorthalidone, given his age and his prazosin should be continued as well which also may be up titrated as necessary. Surprisingly, his lipid panel is very well controlled, so I will hold off on statin for now, but he will be continued on low-dose aspirin which was started upon admission.
[2018-11-25 16:26] LABS: Lyme Ab IgG w/WB Rflx Negative (Negative); Lyme Ab IgM w/WB Rflx Negative (Negative)
[2018-11-25] MEDS: DOXYCYCLINE HYCLATE 100 MG CAP PO SCH ×2 (17:49→22:12)
--- NOTE | 2018-11-25 18:19 | CT Scan Report ---
CT OF THE NECK WITHOUT CONTRAST CLINICAL HISTORY: Painful swelling of bilateral submandibular glands. COMPARISON STUDY: No previous studies for comparison. TECHNIQUE: Axial images of the neck were obtained without IV contrast. Automated exposure control was utilized for the study. A dose lowering technique was utilized adhering to the principles of ALARA. FINDINGS: Visualized portions of the intracranial contents are unremarkable. The bilateral parotid gl ands are unremarkable. There is enlargement with mild infiltration adjacent to the bilateral submandi bular gland, slightly greater on the right. A prominent right submental lymph node is likely benign. No pathologically enlarged cervical lymph nodes are present. The epiglottis is normal. There is no pr evertebral edema. There is no soft tissue gas within the neck. Lung apices are clear. Multilevel dege nerative disc disease within the cervical spine is noted. There are no suspicious lesions. No abscess within the neck. No sialoliths are identified. IMPRESSION: Enlargement and mild infiltration adjacent to the bilateral submandibular glands consist ent with sialoadenitis. This favors a viral process. No abscess. Electronically signed by: Shamar Campbell M.D. 11/25/2018 6:18 PM
[2018-11-26] MEDS: LACTATED RINGER'S 1,000 ML IV SCH (03:48)
[2018-11-26] MEDS ORDERED: INSULIN ASPART 100 UNITS/ML 3 ML PEN SC SCH (06:00)
[2018-11-26 06:44] LABS: Estimated Average Glucose 134 mg/dl; Hemoglobin A1C 6.3 % (4.5-5.6)
[2018-11-26 07:48] LABS: BUN Creatinine Ratio 18.9 (10-20); Calcium 9.3 mg/dl (8.5-10.1); Creatinine Clr Calc Pharmacy 82.8 ml/min; Est GFR (African American) 107.9; Est GFR (Non-African American) 93.1; Potassium 3.1 mmol/L (3.5-5.1)
[2018-11-26] MEDS: LOSARTAN POTASSIUM 50 MG TAB PO SCH (08:16)
[2018-11-26] MEDS: ASPIRIN 81 MG ECTAB PO SCH (08:17)
[2018-11-26] MEDS: DOXYCYCLINE HYCLATE 100 MG CAP PO SCH (08:18)
[2018-11-26] MEDS ORDERED: METOPROLOL TARTRATE 1 MG/ML VIAL IV ONE ×2 (08:43→08:44)
[2018-11-26] MEDS ORDERED: DOBUTamine HCL 12.5 MG/ML 20 ML VIAL IV ONE (08:43)
[2018-11-26] MEDS ORDERED: ATROPINE SULFATE 0.1 MG/ML 10ML SYR IV ONE (08:44)
[2018-11-26] MEDS ORDERED: AMLODIPINE BESYLATE 5 MG TAB PO SCH ×2 (09:00)
[2018-11-26] MEDS ORDERED: PERFLUTREN LIPID MICROSPHERE (DEFINITY) IV ONE (09:25)
[2018-11-26] MEDS ORDERED: AMOXICILLIN/CLAVULANATE 875 MG TAB PO ONE (10:45)
[2018-11-26] MEDS ORDERED: POTASSIUM CHLORIDE 20 MEQ TABCR PO ONE (10:45)
--- NOTE | 2018-11-26 10:55 | Cardiology Progress Note ---
Date of Service November 26, 2018 Assessment & Plan (1) Chest pain: nonischemic dobutamine stress echocardiogram symptoms were not reproduced at target heart rate believe chest pain to be secondary to hypertensive urgency (2) Hypertensive urgency: bp somewhat improved overnight would cont losartan 100mg daily and prazosin 1mg increase amlodipine to 10mg daily f/u with pcp in 1 week to follow with a bmp ok to d/c home from cardiac standpoint (3) Coronary artery disease: pt does have documented hx but does not routinely follow with cardiology would like to establish with Dr. Bahena at the recommendation of his friend appt request has been entered into [facility] for 4-6 weeks Subjective Pt seen and examined, no complaints overnight. Tolerating medication changes well. Denies cp, sob, palpitations, lightheadedness or dizziness. tele reviewed: sinus rhythm without arrhythmia or significant ectopy. Review of Systems Review of Systems: All systems reviewed & are unremarkable except as noted in HPI & below Physical Exam Physical Exam: General: Awake, alert and oriented x 3. No acute distress. HEENT: Normocephalic, atraumatic. Pupils equal, round and reactive to light and accommodation. Extraocular muscles are intact. Anicteric sclera. Moist mucous membranes. Neck: No JVD. No bruit. Cardiovascular: Regular. Positive S-4. Normal S-1 and S-2. No S-3. No murmurs or rubs. Pulmonary: Clear to auscultation B/L. No rales, rhonchi or wheezing Abdomen: Bowel sounds x 4, soft. No rebound, guarding or tenderness. No organomegaly. Extremities: No clubbing, cyanosis or edema. +2 pedal pulses bilaterally. Skin: Warm and dry. Results & Data Vital Signs (Past 12 Hours) Vital Signs Temp Pulse Resp BP Pulse Ox 11/26/18 07:33 36.9 C 74 18 142/69 H 96 11/26/18 02:55 36.6 C 68 15 134/72 98 11/25/18 23:52 36.6 C 67 16 143/75 H 98
--- NOTE | 2018-11-26 22:28 | Discharge Summary ---
Date of Service November 26, 2018 Admission HPI Per Admitting Provider History obtained from patient, family, and records. Medical history significant for hypertension, DM 2 on oral medications, COPD, past tobacco abuse, chronic back pain, history solitary kidney, osteoarthritis. Last night patient noted substernal/subcostal chest pain going to both shoulder blades and the left arm. SBP noted to be higher at home the last week at 150s. Compliant with home BP meds. Denies dietary indiscretion. Patient denies unusual stress. Admits to OTC NSAID intake for back pain. No fever, no chills no cough symptoms. Some improvement of chest pain upon arrival at the ER. 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 Principal Diagnosis Hypertensive urgency Discharge Exam Constitutional WD/WN, vitals as above well developed; no acute distress Eyes PERRL, conjunctivae normal, anicteric sclerae Neck trachea midline, no thyromegaly + submandibular swelling (Right submandibular lymphadenopathy positive tenderness) and + neck tender (Tender right submandibular lymphadenopathy) Respiratory normal respiratory effort, lungs clear to auscultation Cardiovascular RRR, no murmur, no edema Musculoskeletal Knee: + joint line tenderness (Right inguinal region, chronic bilateral knee pain from arthritis) Skin no rashes, warm and dry Neurologic PERRL, EOMI, accommodation nl, no face palsy, no dysarthria Psychiatric A+Ox3, euthymic affect Discharge Data Allergies Allergy/AdvReac Type Severity Reaction Status Date / Time Iodinated Contrast- Oral and Allergy Mild Hives Verified 11/25/18 00:14 IV Dye morphine Allergy Unknown Unknown Verified 11/24/18 22:10 rosuvastatin [From Crestor] AdvReac Intermediate Muscle Verified 11/24/18 22:10 pain and upset stomach Consultations 11/24/18 22:32 ED Decision to Admit Stat 11/25/18 13:06 Consult Cardiology Routine Ordered Studies 11/24/18 22:56 CT head/brain wo con Urgent 11/24/18 23:44 CT angio chest dissec wo/w con Stat 11/25/18 13:24 US abdomen limited Routine 11/25/18 17:06 CT soft tissue neck wo con Routine Hospital Course (1) Unstable angina: Presented with anginal symptom, chest heaviness" something sitting on chest"-difficulty breathing, discomfort radiating to back numbness radiating to left arm and fingers Associated with hypertensive urgency, systolic BP was more than 180 on presentation Symptom improved after blood pressure control Serial troponins been negative At present patient is chest pain-free Has a very significant family history: Father had WI at age approximately 50-year/underwent quadruple bypass, due to WI at age 62 Paternal grandfather: History of WI Patient is a non-smoker, Had stress test leading to cardiac cath done in 2010 in [facility] sec ondary to similar presentation Cardiac cath revealed 5% RCA stenosis/15% LAD lesion, ejection fraction 60% Medical management was recommended Resting Echo: This admission No wall motion abnormality, EF 60% Grade 1 diastolic dysfunction CTA OF CHEST : no evidence of Aortic dissection /or PE No evidence of acute aortic injury. No acute intrathoracic pathology. [facility] cardiology consulted Appreciate input Dobutamine stress echo shows negative for stress-induced ischemia (2) Hypertensive urgency: Noted with elevated blood pressure, SBP in 180s Patient is home BP regimen includes losartan 100 mg daily Atenololchlorthalidone 50/25 mg by mouth daily-discontinued since admission prazosin 1 mg tablet at bedtime-discontinued Started on Norvasc: Dose adjusted to 5 mg daily, leading to adequate control of blood pressure with resolution of chest heaviness symptom Will be continued with losartan 100 mg twice daily Outpatient follow-up with family physician for further adjustment of BP meds if needed (3) Hypokalemia: Resented with potassium 3.2 Corrected with IV supplement Repeat lab this morning shows potassium 3.8: Within normal limit IV fluid with potassium supplement discontinued (4) Type 2 diabetes mellitus: Hemoglobin A1c 6 as per lab noted in clinic on August 2018 Home antidiabetic regimen: Metformin-kept on hold, patient received contrast for CTA of chest Insulin sliding scale while in hospital Metformin can be resumed next day, which is approximately 48-hour after contrast and renal function has been stable (5) Family history of coronary artery disease in father: Family history of premature coronary artery disease, WI (at age 50s )leading to sudden cardiac in father at age 62 Presented with chest heaviness, chest tightness, similar to angina symptoms Dobutamine stress test shows negative for stress-induced ischemia Cardiology evaluation appreciated Symptom possible secondary to hypertensive urgency, Pressure meds adjusted, Patient is discharged on losartan 100 mg p.o. daily :previous med New medication: Norvasc 5 mg daily No recurrence of symptom/chest heaviness since admission as blood pressure remained well controlled Patient will need for close follow-up with family physician in the clinic for monitoring of blood pressure and adjustment of BP meds if needed (6) Coronary artery disease: Cardiac cath in 2011: Minimal coronary artery disease 5% RCA stenosis, 50% LAD stenosis Patient with anginal symptoms precipitated due to and hypertensive urgency Symptom resolved after blood pressure control Dobutamine stress test negative for stress-induced ischemia, appreciate cardiology evaluation (7) Lymphadenopathy, inguinal: Right inguinal tender node, for last 2 to 3 months, associated with g eneralized body ache, joint pain History of tick bite/Lyme disease 1 year back Lyme titer, peripheral smear for anaplasmosis/Monospot test negative Ultrasound of groin shows no evidence of lymphadenopathy (8) Submandibular lymphadenopathy: Possible siloadenitis Associated with sore throat, nonproductive cough Possible reactive lymphadenopathy secondary to upper airway infection Order for streptococcal throat swab-negative Symptomatic management with Tessalon peals as needed for sore throat Patient will be discharged with 5 days of p.o. Augmentin Symptomatic management with as needed Tylenol (9) Solitary kidney: Renal function remains stable (10) Allergic to IV contrast: Patient received IV Solu-Medrol prior to contrast for CT of chest No allergic reaction noted after steroid prophylaxis CODE STATUS: Full code DVT prophylaxis: Subcu heparin Disposition: Stable to be discharged home today Patient's family physician: Dr. Escoto at [facility] Patient would like to continue cardiology follow-up with Dr. Zana Bahena at [facility] Total Time Total Time Spent Total Time Spent (In Minutes): Approximate 45 minutes Discharge Plan Discharge Items Patient Disposition: Home - Self-Care Reason For Visit: CP, HTN URGENCY Discharge Diagnosis: HYPERTENSIVE URGENCY Condition: Fair Discharge Goals: Decrease discomfort, Diagnostic testing and Therapeutic intervention Activity: Resume your previous activity Non-emergency contact: Primary Care Provider Call non-emergency contact if: you have any medication questions Follow-up/Referrals: Zana Bahena DO [Collective Bargaining Specialist] - (Cardiology follow-up in 4-6 weeks, office will call with appointment) Andrew Griffith MD [Primary Care Provider] - (Hospital follow-up with Dr. Isabella King tomorrow 11/27/2018 at 10:45 AM) Diet: Heart Healthy Diet Comment: can you soft bite sized food for next 2-3 days till soreness resolves Addtl Provider Instructions: Hospital follow-up: With Dr. Isabella King at [facility] tomorrow , 11/27/2018 at 10:45 AM PLEASE RE EVALUATE PAINFUL SWELLING OF BILATERAL JAW AREA YOU HAVE PROBABLE VIRAL INFECTION OF YOUR SALIVARY GLAND PLEASE DRINK PLENTY OF FLUIDS , WARM COMPRESSION AT AREA OF PAIN , CAN TAKE TYLENOL NEEDED SOFT DIET IF IT IS PAINFUL TO CHEW YOU SYMPTOMS SHOULD GET BETTER IN NEXT 2-3 DAYS PLEASE NOTIFY YOUR FAMILY PHYSICIAN IF THE PAIN /SWELLING GETTING WORSE /HAVING FEVER YOU ARE PRESCRIBED ANTIBIOTIC AUGMENTIN TAKE 1 TABLET DAILY FOR 5 DAYS -FOR POSSIBLE SECONDARY BACTERIAL INFECTION IN THE SALIVARY GLANDS Cardiology follow-up with Dr. Zana Bahena at [facility] cardiology [facility] in 4 to 6 weeks NEW MEDICATION: Amlodipine/Norvasc 5 mg 1 tablet daily-for high blood pressure Continue to take: Losartan 100 mg by mouth daily Stop taking: Atenololchlorthalidone Do not take: Naproxen Avoid Aleve, Advil, Motrin, ibuprofen-these are the [id number]-gio-[id number] pain medications belonging to NSAID : Can cause serious damage to kidneys, severe acid reflux, gastric ulcer Can take Tylenol as needed for pain You can start taking metformin from tomorrow Avoid salt in your diet, which can cause high blood pressure Please notify your family physician or come to ER with any event of chest heaviness or dizzy spells /nausea/ numbness radiating to left arm Prescriptions: New amlodipine [Norvasc] 5 mg Tablet 5 mg PO QAM 30 Days Qty: 30 RF: 3 amoxicillin-pot clavulanate [Augmentin] 875-125 mg tablet 1 tab PO BID 5 Days Qty: 10 RF: 0 Continued aspirin 81 mg Tablet,Chewable 81 mg PO QAM RF: 0 Probiotic 3 billion cell Capsule PO QAM RF: 0 losartan 50 mg Tablet 100 mg PO QAM RF: 0 metformin 500 mg Tablet 1,000 mg PO QAM RF: 0 metformin 500 mg Tablet 500 mg PO HS RF: 0 zolpidem [Ambien] 5 mg Tablet 12.5 mg PO HS RF: 0 Discontinued naproxen sodium [Aleve] 220 mg Tablet 220 mg PO BID PRN (Reason: Pain) RF: 0 atenolol-chlorthalidone 50-25 mg Tablet 1 tab PO QAM RF: 0 Stand-Alone Forms: Call Back Authorization, [facility]/Other Patient Handouts: Tips Using Less Salt, Choices Low Salt, Diet Low Salt Dc Discharge Orders: Discharge Order (Routine); Ordered 11/26/18 Ordered By: Hilda Lake Admission Data Admit Date/Time: 11/26/18 09:34 Attending Provider: Hilda Lake Admit Provider: Rodolfo Adams Primary Care Provider: Andrew Griffith Other Providers: Philip Zambrano ; Zana Bahena ; Epi Marino ; Reno Stoddard ; Mathew Bailey ; Bakari Perales ; Radha Glez ; Nellie Lopez ; Rodolfo Adams Service: Telemetry Other Interventions: Discharge Summary Assessment (RN) Last Done: 11/26/18 12:03 DC Date/Time DO NOT enter until pt leaves facility: 11/26/18 13:38
== END 2018-11-26 13:38 | disposition home or self-care (01) | DRG 305 ==
LOC: 2S 21:30 → ED 21:30 → 2S 11-25 00:45
DX: F32.9 Major depressive disorder, single episode, unspecified; I10 Essential (primary) hypertension; E11.40 Type 2 diabetes mellitus with diabetic neuropathy, unspecified; I20.0 Unstable angina; G89.29 Other chronic pain; I16.0 Hypertensive urgency; Q60.0 Renal agenesis, unilateral; Z79.84 Long term (current) use of oral hypoglycemic drugs